=== PATIENT | female | born 1950 ===

== ENCOUNTER 2019-11-02 12:43 | Inpatient (IN) | payer MEDICARE, BC ==
[~2019-11-02] VITALS: Ht 163.8 cm; Wt 57.1 kg
[2020-01-10] VITALS (11 sets, daily range): BP systolic 96–116; BP diastolic 54–73; PULSE 74–93; TEMP 96.3–98
[2020-01-10] MEDS ORDERED: NORVASC2.5 MG PO (07:49)
[2020-01-10] MEDS ORDERED: ASPIRIN 81M81 MG/TA2 PO (07:50)
[2020-01-10] MEDS ORDERED: WELLBUTRIN XL300 M1 PO (07:51)
[2020-01-10] MEDS ORDERED: COZAAR 50MG50 MG/TAB PO (07:52)
[2020-01-10] MEDS ORDERED: EFFEXOR-XR150 MG PO (07:53)
[2020-01-10] MEDS ORDERED: ALEVE 220MG220 MG PO (07:53)
[2020-01-10] MEDS ORDERED: ONE-A-DAY ESSE1 EACH PO (07:54)
[2020-01-10] MEDS ORDERED: ZOCOR 40MG40 MG PO (07:54)
[2020-01-10] MEDS ORDERED: DESYREL 50MG50 MG PO (07:55)
[2020-01-10] MEDS ORDERED: KLONOPIN 0.5MG0.5 MG PO (07:56)
[2020-01-10] MEDS ORDERED: FOSAMAX 35MG35 MG PO (07:56)
--- NOTE | 2020-01-10 10:10 | NUR ---
PT ADMITTED PER WHEEL CHAIR TO ROOM 328. VSS, CONSENT SIGNED ON CHART. PT TO SURGERY PER BED WITH
--- NOTE | 2020-01-10 13:21 | NUR ---
PT TO ROOM 328 PER BED WITH REPORT FROM ELBA JAMISON PACU @9600. PT IS A/O X3 DENIES PAIN NAUSEA OR VOMITING. LUNGS CLEAR, BOWEL SOUNDS PRESENT. DRESSING TO LEFT KNEE CDI WITH CAROLINE WRAP OVER DRESSING. ICE TO KNEE. SCDS AND TEDS INPLACE. IV TO PUMP PER ORDRES. VSS. PT DROWSEY.
--- NOTE | 2020-01-10 16:40 | NUR ---
Payroll Administrator met with patient to discuss discharge planning. Patient lives alone in [place] and sees Dr. Eduardo for primary care. Patient obtains medications from [facility] with no difficulties. Patient has a cane, walker and no other DME. Patient reports she is normally independent with ADLS. Patient would like to designate her two daughters Bhakti (ph#[phone]) and Oralia (ph#[phone]) as DPOA-HC. SW assisted patient in completing DPOA-HC form then CHARAN and CHARAN German signed as witnesses. SW provided original and copies to patient then placed copy in chart. Patient plans to return home at discharge. Patient states her daughter Oralia is planning stay for about six days, then Bhakti will come stay with her. Patient reports she has other people available beyond that if needed. SW will continue to follow if needed.
--- NOTE | 2020-01-10 18:32 | NUR ---
PT UP TO BR WITH SBAX2, VOIDED, PT CALLED AND WHEN RESPONDING TO CALL LIGHT FOUND IV HAD COME UNDONE AND WAS LEAKING BLOOD ALL OVER PT AND FLOOR. STOPPED BLOOD FLOW AND CLEANED PT AND BR. ASSISTED PT BACK TO BED AFTER NEW GOWN AND PERSONAL CARE.
--- NOTE | 2020-01-10 18:53 | NUR ---
REPORT TO VANESSA JAMISON.
--- NOTE | 2020-01-10 20:40 | NUR ---
Pt. sitting up in bed at this time. Pt. is A&OX3, assessment complete. IV to rt. ac patent, IV fluids infusing per orders. Dressing to lt. knee CDI. Pt. reports pain to knee at a 8 on pain scale, gave pain meds per orders. Pt. denies denies further needs, call light within reach.
--- NOTE | 2020-01-10 22:30 | NUR ---
Asked by pt nurse Landon RN to give pt pain medication and anxiety medication. Pt was asked to rate her pain at this time pt stated that her pain was at a 10 out of 10 on the numeric pain scale. Pain medication and anxiety medication was given at this time. Pt has her call light within reach and her bed is in lowest position.
[2020-01-11 00:07] VITALS: BP 123/81; BP 1238/81; PULSE 88; TEMP 97.3
[2020-01-11 03:41] VITALS: BP 127/65; PULSE 87; TEMP 98.1
--- NOTE | 2020-01-11 06:59 | NUR ---
REPORT FROM VANESSA JAMISON.
[2020-01-11 07:21] LABS: HEMOGLOBIN 11.8 g/dl (12.5-16.0)
[2020-01-11 07:25] LABS: HEMATOCRIT 35.1 % (37.0-47.0)
[2020-01-11 07:54] VITALS: BP 133/73; PULSE 96; TEMP 98
--- NOTE | 2020-01-11 09:57 | NUR ---
PT UP TO RECLINER WITH THERAPY. DRESSING CHANGE COMPLETE, INCISION WITH WELL APPROXIMATED EDGES AND STERI STRIPS OVER INCISION. PT TOLERATED WELL. PAIN CONTROLLED WITH PO MEDS AT THIS TIME. PT EATING AND DRINKING WITH OUT NAUSEA OR VOMITING, PT DIAPHORETIC DURING THERAPY BY REPORT FROM THERAPIST.
[2020-01-11 10:44] VITALS: BP 111/62; PULSE 87; TEMP 98.6
[2020-01-11 15:28] VITALS: BP 100/58; PULSE 92; TEMP 98.1
--- NOTE | 2020-01-11 19:10 | NUR ---
REPORT TO ALBIN RN.
[2020-01-11 20:53] VITALS: BP 90/59; PULSE 102; TEMP 98.1
--- NOTE | 2020-01-11 21:00 | NUR ---
PT UP TO BATHROOM WITH ONE ASSIST/WALKER AND GAIT BELT. HAS SLOW STEADY GAIT. DRSG TO LEFT KNEE INTACT. TRIES TO EAT DINNER NOW THAT SHE IS AWAKE.
--- NOTE | 2020-01-11 22:00 | NUR ---
PT IN BED, TAKES HS MEDS INCLUDING OXYCODONE 10MG PO PER HER REQUEST FOR PAIN TO LEFT KNEE 04/08. SL TO RIGHT FOREARM FLUSHED WELL. ATE 50% OF DINNER TRAY.
[2020-01-12] VITALS: BP 111/68; PULSE 01; PULSE 101; TEMP 98.5
[2020-01-12 04:00] VITALS: BP 114/63; PULSE 100; TEMP 98.2
--- NOTE | 2020-01-12 05:15 | NUR ---
MEDICATED WITH OXYCODONE 10MG PO FOR PAIN TO KNEE AFTER BEING UP TO BATHROOM.
[2020-01-12 07:02] LABS: HEMOGLOBIN 11.4 g/dl (12.5-16.0)
[2020-01-12 07:06] LABS: HEMATOCRIT 34.3 % (37.0-47.0)
[2020-01-12 07:20] VITALS: BP 107/62; PULSE 103; TEMP 98.5
--- NOTE | 2020-01-12 09:18 | NUR ---
PT IN BED FROM RECLINER AFTER USING BR. PO PAIN MEDS FOR PAIN CONTROLL. NOW USING ONE NORCO 5. PT HAS HAD INCREASED CONFUSION AND UNSTEADY GAIT. UPDATED DR NICHOLE ON PT CONDITION. SEE COMPUTER FOR NEW ORDER.
[2020-01-12 10:34] VITALS: BP 91/54; PULSE 98; TEMP 98.1
--- NOTE | 2020-01-12 13:36 | NUR ---
PT CONTINUES TO BE IMPULSIVE AND FORGETFUL. CHAIR AND BED ALARMS INPLACE. PT IS BEING SCREENED FOR [facility].
--- NOTE | 2020-01-12 15:14 | NUR ---
Clean Up Supervisor notified by RNBrady that Dr. Marino would like patient to consider post acute rehab. SW met with patient who is agreeable to this. Patient's first preference is [facility] and second preference is [facility]. CHARAN called [facility] Director to give referral then faxed referral to Gayle at [facility]. SW requested COVID swab to be ordered. CHARAN followed up with patient's daughter, Bhakti who expressed relief and advised she feels patient will benefit from post acute rehab. CHARAN followed up with [facility] Director who advised they will likely decline referral. CHARAN followed up with Gayle at [facility] who advised they can accept pending COVID results. CHARAN will continue to follow.
[2020-01-12 15:48] VITALS: BP 107/52; PULSE 92; TEMP 97.9
--- NOTE | 2020-01-12 19:01 | NUR ---
REPORT TO CASEY JAMISON.
--- NOTE | 2020-01-12 20:04 | NUR ---
Shift report received from YAQUELIN Abreu. At time of assessment, patient answers orientation questions correctly but appears forgetful. She is alert and in bed watching TV. Heart sounds are normal/regular, lungs are clear, no edema present. She complains of pain 8/10 and 1 pain pill is administered. Left knee surgical site's dressing is CDI. Bilateral monique hose are on at this time. IS education is provided and patient takes 5 breaths. No new concerns.
[2020-01-12 20:39] VITALS: BP 111/61; PULSE 100; TEMP 98.6
[2020-01-13] VITALS (7 sets, daily range): BP systolic 94–125; BP diastolic 54–73; PULSE 81–110; TEMP 97.7–98.7
[2020-01-13] MEDS ORDERED: ASPI325T6 PO (06:55)
[2020-01-13] MEDS ORDERED: ULTRAM 50MG TAB50 MG PO (06:56)
[2020-01-13] MEDS ORDERED: NORCO 325 MG-51 TAB PO (06:56)
[2020-01-13] MEDS ORDERED: SENOKOT S 50 MG1 TAB PO (06:56)
--- NOTE | 2020-01-13 08:00 | NUR ---
Patient resting in bedside recliner eating breakfast. Patient is alert and oriented, answers questions appropriately. Patient denies pain or nausea. Patient denies further needs at this time, call light within reach.
--- NOTE | 2020-01-13 15:47 | NUR ---
Cooker Meal notified that patient is ready for discharge, however patient's COVID results are still pending. [facility] can accept once COVID results are received. CHARAN contacted patient's daughters, Bhakti and Oralia to provide update. CHARAN faxed clinical updates to Gayle at [facility] and will continue to follow.
--- NOTE | 2020-01-13 18:23 | NUR ---
Patient resting in bed at this time. Patient remains alert and oriented. Patient has declined pain mediation today and ambulates with walker and SBA, continent of bowel and bladder. Patient denies needs at this time, call light within reach.
--- NOTE | 2020-01-13 20:50 | NUR ---
Pt reports pain to left knee, medicated with Vista 5/325mg 2 tabs at this time. Takes HS meds as well. Is alert and oriented x4. SL to right forearm flushed well. Has Aquacel drsg to knee. Bed alarm on for occasional impulsive behaviors.
[2020-01-14 05:15] VITALS: BP 116/64; PULSE 81; TEMP 97.8
--- NOTE | 2020-01-14 06:00 | NUR ---
Pt resting well, no complaints offered this AM.
[2020-01-14 08:17] VITALS: BP 105/57; PULSE 974; TEMP 98.1
[2020-01-14 12:13] VITALS: BP 113/68; PULSE 89; TEMP 98.6
[2020-01-14 16:52] VITALS: BP 106/56; PULSE 98; TEMP 98.7
--- NOTE | 2020-01-14 17:00 | NUR ---
Patient's COVID results are still pending. CHARAN collaborated with Gayle at [facility] who advised they can accept tomorrow. Gayle advised she would want some updates in the morning prior to admit. CHARAN provided update to patient and patient's daughter, Bhakti. CHARAN will continue to follow.
[2020-01-14 18:27] VITALS: BP 144/57
--- NOTE | 2020-01-14 19:14 | NUR ---
Patient has remained alert and oriented today. Patient requested PRN pain medication once after PT, administered per order. Informed patient that COVID test had come back and it was negative. Patient denies pain or needs at this time, call light within reach.
--- NOTE | 2020-01-14 19:45 | NUR ---
Pt. sitting up in bed at this time. Pt. is A&OX3, assessment complete. INT to rt. forearm patent. Pt. reports pain at a 5 on pain scale. Pt. would like pain meds with evening meds. Will give per orders. Dressing to lt. knee with some drainage noted. Dressing is not saturated. Pt. denies further needs, call light within reach.
[2020-01-14 21:01] VITALS: BP 131/69; PULSE 85; TEMP 98.5
[2020-01-15 04:00] VITALS: BP 137/82; PULSE 89; TEMP 98.2
--- NOTE | 2020-01-15 06:10 | NUR ---
Pt. slept well through the night. Remains A&OX3. Pt. reported pain at a 6 on pain scale this am, gave pain meds. Pt. denies further needs.
[2020-01-15 07:28] VITALS: BP 145/78; PULSE 94; TEMP 98.4
--- NOTE | 2020-01-15 07:55 | NUR ---
Patient up to the bathroom, steady on her feet with walker. Ortho rounded this am. Plans for discharge today. She has dressed and packed up her belongings. Her Left knee aquacell dressing CDI. Ottoniel Paul.
--- NOTE | 2020-01-15 10:10 | NUR ---
Patient anticipating dicharge today. [place] per request. Patient also given MOM with prune juice she is concerned about her bowels & constipation.
--- NOTE | 2020-01-15 10:42 | NUR ---
CHARAN update: Client to transfered to [facility] at noon. CHARAN spoke with DTR. Bhakti about DC. Bhakti denies having any concerns. CHARAN educated DTR on process. Bhakti will be dropping off clothing to [facility] and provided DTR with POC for [facility]. Nothing follows.
[2020-01-15 11:22] VITALS: BP 124/75; PULSE 85; TEMP 97.7
[2020-01-15 11:46] VITALS: BP 124/75; PULSE 85; TEMP 97.7
--- NOTE | 2020-01-15 12:25 | NUR ---
Report called to nurse at [facility], all questions answered. Patient wheeled out with all belongings.
== END 2020-01-15 12:26 | DRG 468 ==
LOC: JCC 01-10 06:57
PROVIDERS: ADMIT Orthopaedic Surgery
PROC: 0SRD0J9 Replacement of Left Knee Joint with Synthetic Substitute, Cemented, Open Approach (ICD-10-PCS; 2020-01-10)
PROC: 0SPD0JZ Removal of Synthetic Substitute from Left Knee Joint, Open Approach (ICD-10-PCS; principal; 2020-01-10 11:10)
DX: T84.033A Mechanical loosening of internal left knee prosthetic joint, initial encounter (principal); M19.90 Unspecified osteoarthritis, unspecified site; F32.9 Major depressive disorder, single episode, unspecified; M81.0 Age-related osteoporosis without current pathological fracture; Z85.3 Personal history of malignant neoplasm of breast; Z88.2 Allergy status to sulfonamides
CPT/HCPCS: A9284; C1713; C1776; J0690; J2250; J2270; J2704; J3010; J7030; J7120

== ENCOUNTER 2020-11-15 05:27 | Day surgery (SDC) | payer MEDICARE, BC ==
[~2020-11-15] VITALS: Ht 164 cm; Wt 62.6 kg
[2020-11-15] VITALS (10 sets, daily range): BP systolic 101–120; BP diastolic 62–75; PULSE 85–106; TEMP 97.6–98.3
[~2020-11-15 05:27] MED LIST: ALEVE 220MG220 MG PO; ASPI325T6 PO; ASPIRIN 81M81 MG/TA2 PO; COZAAR 50MG50 MG/TAB PO; DESYREL 50MG50 MG PO; EFFEXOR-XR150 MG PO; FOSAMAX 35MG35 MG PO; KLONOPIN 0.5MG0.5 MG PO; NORCO 325 MG-51 TAB PO; NORVASC2.5 MG PO; ONE-A-DAY ESSE1 EACH PO; SENOKOT S 50 MG1 TAB PO; ULTRAM 50MG TAB50 MG PO; WELLBUTRIN XL300 M1 PO; ZOCOR 40MG40 MG PO
[2020-11-16] VITALS (7 sets, daily range): BP systolic 101–142; BP diastolic 53–78; PULSE 60–101; TEMP 98.2–98.6
[2020-11-16 06:57] LABS: HEMATOCRIT 29.2 % (37.0-47.0); HEMOGLOBIN 9.7 g/dl (12.5-16.0)
[2020-11-17 04:09] VITALS: BP 126/67; PULSE 97; TEMP 98.5
[2020-11-17] MEDS ORDERED: ASPI325T6 PO (07:06)
[2020-11-17] MEDS ORDERED: ULTRAM 50MG TAB50 MG PO (07:06)
[2020-11-17] MEDS ORDERED: NORCO 325 MG-7.1 TAB PO (07:06)
[2020-11-17] MEDS ORDERED: SENOKOT S 50 MG1 TAB PO (07:07)
[2020-11-17 07:14] VITALS: BP 136/76; PULSE 99; TEMP 98.3
[2020-11-17 11:17] VITALS: BP 120/61; PULSE 95; TEMP 97.8
== END 2020-11-17 15:30 | disposition home or self-care (01) ==
LOC: SDCO 05:27 → INPTSU 05:27 → SURG 05:27 → EDSTATUS 07:30 → INPTSU 10:15 → SURG 10:15 → SDCO 11-17 15:30 → SURG 11-17 15:30
PROVIDERS: Orthopaedic Surgery
PROC: 0SRC069 Replacement of Right Knee Joint with Oxidized Zirconium on Polyethylene Synthetic Substitute, Cemented, Open Approach (ICD-10-PCS; principal; 2020-11-15 07:30)
DX: M17.11 Unilateral primary osteoarthritis, right knee (principal); M81.0 Age-related osteoporosis without current pathological fracture; F32.9 Major depressive disorder, single episode, unspecified; Z79.82 Long term (current) use of aspirin; Z79.899 Other long term (current) drug therapy; Z88.0 Allergy status to penicillin; Z88.1 Allergy status to other antibiotic agents; Z85.3 Personal history of malignant neoplasm of breast
CPT/HCPCS: OP; A9284; C1713; C1776; J1100; J1885; J2250; J2370; J2405; J2704; J3010; J7120

== ENCOUNTER → 2021-01-18 | Outpatient (CLI) | payer MEDICARE, BC ==
[~2021-01-18] MED LIST changes: +NORCO 325 MG-7.1 TAB PO
== END ==
LOC: MC.RAD 10:15
DX: Z12.31 Encounter for screening mammogram for malignant neoplasm of breast (principal); N63.20 Unspecified lump in the left breast, unspecified quadrant

== ENCOUNTER → 2022-02-19 | Outpatient (CLI) | payer MEDICARE, BC | LOC: MC.RAD 09:45 | DX: Z12.31 Encounter for screening mammogram for malignant neoplasm of breast (principal); N64.89 Other specified disorders of breast ==

== ENCOUNTER → 2022-02-22 | Outpatient (CLI) | payer MEDICARE, BC | LOC: MC.RAD 11:00 | DX: N64.89 Other specified disorders of breast (principal) ==

== ENCOUNTER → 2023-09-18 | Outpatient (CLI) | payer MEDICARE, BC ==
[~2023-09-18] MED LIST changes: +Gadoterate 15 ML VIAL IV ONE
== END ==
LOC: COL.RAD 11:46
DX: M50.31 Other cervical disc degeneration, high cervical region (principal); M50.321 Other cervical disc degeneration at C4-C5 level; M50.322 Other cervical disc degeneration at C5-C6 level; M50.323 Other cervical disc degeneration at C6-C7 level; M48.02 Spinal stenosis, cervical region; R29.2 Abnormal reflex; R20.2 Paresthesia of skin
CPT/HCPCS: A9575

== ENCOUNTER → 2024-01-28 | Outpatient (RCR) | payer MEDICARE, BC ==
[~2024-01-28] MED LIST changes: -Gadoterate 15 ML VIAL IV ONE
== END | disposition home or self-care (01) ==
LOC: PT.GENESIS
DX: D32.9 Benign neoplasm of meninges, unspecified (principal)